=== PATIENT | male | born 1980 | race Caucasian/White ===

== ENCOUNTER 2025-03-05 18:55 | Emergency (ER) | payer SELFPAY ==
[2025-03-05] MEDS: cefTRIAXone 1 GM in Lidocaine 1% 2.1 ML IM ONE (20:26)
== END 2025-03-05 20:32 | disposition home or self-care (01) ==
LOC: MW.ED 18:55
DX: N45.1 Epididymitis (principal); F17.210 Nicotine dependence, cigarettes, uncomplicated
CPT/HCPCS: 76870; 93976; 96372; 99284; J0696; J2003; 99282